=== PATIENT | male | born 1995 | race Two or more races ===

== ENCOUNTER 2018-06-23 10:53 | Emergency (ER) | payer SELFPAY ==
[~2018-06-23] VITALS: Ht 172.7 cm; Wt 79.4 kg
[2018-06-23] MEDS ORDERED: DIPHTH,PERTUSS(ACELL),TET TOX 0.5 ML DISP.SYRIN. VAX IM ONE (13:00)
[2018-06-23] MEDS ORDERED: LIDOCAINE 1% PF 30 ML VIAL. INJ ONE (13:00)
[2018-06-23] MEDS ORDERED: LIDOCAINE/EPI/TETRACAINE TOPICAL GEL 3 ML. TP ONE (13:00)
[2018-06-23] MEDS ORDERED: HYDROcodone/APAP 5/325MG 1 TAB TABLET PO ONE (13:00)
--- NOTE | 2018-06-23 13:23 | RAD ---
History: Cut elbow on metal strip. Laceration. Comparison: None. Findings: AP, lateral, and oblique views of the right elbow. No acute fracture or dislocation is identified. No joint effusion is seen. No radiopaque foreign body is identified. There is mild posterior soft tissue irregularity, compatible with laceration. Impression: 1. Posterior laceration. No radiopaque foreign body. 2. No acute osseous abnormality identified. Electronically signed by: Sher Amado MD (06/23/2018 1:19 PM) [place] [id number]
[2018-06-23 15:00] VITALS: BP 118/64
--- NOTE | 2018-06-23 15:08 | PHYS DOC ---
Past Medical History Past Medical History: No Pertinent History Past Surgical History: No Surgical History Alcohol Use: Occasionally Drug Use: Marijuana Adult General Chief Complaint Chief Complaint: LACERATION/AVULSION HPI HPI Patient is a 22 year old male who presents with right forearm laceration. Patient cut himself accidentally with a metal rebar at work. Review of Systems Review of Systems Constitutional: Denies fever or chills [] Musculoskeletal: Denies back pain or joint pain [] Integument: Reports right forearm laceration Neurologic: Denies headache, focal weakness or sensory changes [] All other systems were reviewed and found to be within normal limits, except as documented in this note. Current Medications Current Medications Current Medications Medications (Trade) Dose Ordered Sig/Valorie Start Time Stop Time Status Last Admin Dose Admin Acetaminophen/ Hydrocodone Bitart (Lortab 5/325) 2 tab 1X ONCE 06/23/18 13:00 06/23/18 13:01 DC Diphtheria/ Tetanus/Acell Pertussis (Boostrix) 0.5 ml ONCE ONCE 06/23/18 13:00 06/23/18 13:01 DC Lidocaine HCl (Xylocaine 1% Pf 30ml Vial) 30 ml 1X ONCE 06/23/18 13:00 06/23/18 13:01 DC Lidocaine/ Epinephrine (Let Topical) 6 ml 1X ONCE 06/23/18 13:00 06/23/18 13:01 DC Allergies Allergies Allergies Coded Allergies Type Severity Reaction Last Updated Verified No Known Drug Allergies 01/17/16 No Physical Exam Physical Exam Constitutional: Well developed, well nourished, no acute distress, non-toxic appearance. [] Skin: Right forearm with 2 lacerations, one of them is approximately 8 x 4 cm, the other one is approx. 5X2 cm, there is no obvious tendon involvement in either lacerations. Full range of motion to the right upper extremities. Adequate radial medial and ulnar sensation to the right forearm. +2 right radial pulse. Cap refill less than 2 seconds the right fingers. Back: No tenderness, no CVA tenderness. [] Extremities: No tenderness, no cyanosis, no clubbing, ROM intact, no edema. [] Neurologic: Alert and oriented X 3, normal motor function, normal sensory function, no focal deficits noted. [] Psychologic: Affect normal, judgement normal, mood normal. [] Current Patient Data Vital Signs Vital Signs Date Time Temp Pulse Resp B/P (MAP) Pulse Ox O2 Delivery O2 Flow Rate FiO2 06/23/18 15:00 64 18 118/64 (82) 100 Room Air 06/23/18 11:22 97.7 97.7 EKG EKG [] Radiology/Procedures Radiology/Procedures []PROCEDURE: ELBOW RIGHT 3V History: Cut elbow on metal strip. Laceration. Comparison: None. Findings: AP, lateral, and oblique views of the right elbow. No acute fracture or dislocation is identified. No joint effusion is seen. No radiopaque foreign body is identified. There is mild posterior soft tissue irregularity, compatible with laceration. Impression: 1. Posterior laceration. No radiopaque foreign body. 2. No acute osseous abnormality identified. Electronically signed by: Sher Amado MD (06/23/2018 1:19 PM) [facility] DICTATED and SIGNED BY: SHER AMADO MD DATE: 06/23/18 1318 Laceration/Wound Repair Wound Location: Right forearm Wound's Depth, Shape: V-shaped Wound Length (cm): wound A approx. 8X4 cm wound B approx. 5X2 cm Wound Explored: clean Irrigated w/ Saline (ccs): 500 Betadine Prep?: Y Anesthesia: LET and 1% of lidocaine Volume Anesthetic (ccs): approx. 8 cm for both Suture Size/Type: inner laceration of 8 x 4 cm lac was closed with 3 interrupted sutures using 3. 0 Vicryl, exterior laceration was closed with 20 interrupted sutures using 3.0 and 4. 0 Ethilon., Inner laceration of 5 x 2 cm laceration was closed with 2 interrupted sutures using 3. 0 Vicryl, exterior laceration was closed with 10 interrupted sutures with 5.0 and 3.0 ethilon Wound was covered with nonstick dressing Course & Med Decision Making Course & Med Decision Making Pertinent Labs and Imaging studies reviewed. (See chart for details) Patient has laceration to the right forearm that was closed by me as noted in procedures. Wound care instructions and return precautions provided. Tetanus updated. Follow-up with the ED in 7-10 days for suture removal. Staff Physician Addendum: I was working in the ER during the course of this patient's visit. I was available for consultation as needed, but I was not directly involved in the care of this patient. Dragon Disclaimer Dragon Disclaimer This electronic medical record was generated, in whole or in part, using a voice recognition dictation system. Departure Departure Impression: Primary Impression: Laceration of right forearm Disposition: 01 HOME, SELF-CARE Condition: STABLE Referrals: NO PCP (PCP) Follow-up with the ED in 7-10 days for suture removal Patient Instructions: Laceration Care, Adult Additional Instructions: You have a laceration to the right forearm that was closed with stitches. Keep the area clean and dry, you can shower. Monitor the area for signs of infection including but not limited to increased redness to the area, yellow drainage from the area, warmth to the area and return to the ED if they occur or see your own doctor. Apply Neosporin to the area twice a day. Come back to the ED in 7-10 days for suture removal Problem Qualifiers Primary Impression: Laceration of right forearm Encounter type: initial encounter Qualified Codes: S51.811A - Laceration without foreign body of right forearm, initial encounter LYNDON QUICK APRN Jun 23, 2018 15:08 KATHARINE LANG MD Jun 23, 2018 16:19
== END 2018-06-23 15:23 | disposition home or self-care (01) ==
LOC: ER 10:53
DX: S51.811A Laceration without foreign body of right forearm, initial encounter (principal); W26.8XXA Contact with other sharp object(s), not elsewhere classified, initial encounter; Y93.89 Activity, other specified; Y92.89 Other specified places as the place of occurrence of the external cause; Y99.0 Civilian activity done for income or pay
CPT/HCPCS: 12035; 73080; 99284

== ENCOUNTER 2018-07-03 08:24 | Emergency (ER) | payer SELFPAY ==
[~2018-07-03] VITALS: Ht 172.7 cm; Wt 79.4 kg
[2018-07-03 08:29] VITALS: BP 128/57
--- NOTE | 2018-07-03 08:36 | PHYS DOC ---
Past Medical History Past Medical History: No Pertinent History Past Surgical History: No Surgical History Alcohol Use: Occasionally Drug Use: Marijuana Adult General Chief Complaint Chief Complaint: SUTURE/STAPLE REMOVAL HPI HPI Patient is a 22 year old male who presents with suture removal. Patient had sutures placed in the right forearm 10 days earlier after he accidentally cut the arm on some metal. He denies that he has had complaints over the last week. No worsening pain or swelling. No fevers or chills. Subjectively, patient states wound has been healing fine. Review of Systems Review of Systems Constitutional: Denies fever or chills Integument: Denies rash or skin lesions Neurologic: denies numbness, tingling, weakness Endocrine: Denies polyuria All other systems were reviewed and found to be within normal limits, except as documented in this note. Allergies Allergies Allergies Coded Allergies Type Severity Reaction Last Updated Verified No Known Drug Allergies 01/17/16 No Physical Exam Physical Exam Constitutional: Well developed, well nourished, no acute distress, non-toxic appearance HENT: Normocephalic, atraumatic, bilateral external ears normal, oropharynx moist Skin: Warm, dry, no erythema, no rash. Extremities: Well-healing laceration 2 on the right proximal forearm. Sutures are in place. Wound edges are well approximated. There is no dehiscence. There is no local erythema, swelling, or discharge. Neurologic: Alert and oriented X 3 Psychologic: Affect normal EKG EKG [] Radiology/Procedures Radiology/Procedures [] Course & Med Decision Making Course & Med Decision Making Pertinent Labs and Imaging studies reviewed. (See chart for details) Patient is seen for suture removal. The wound is well-appearing. Patient is discharged home and encouraged to come back for any concerning symptoms. Dragon Disclaimer Dragon Disclaimer This electronic medical record was generated, in whole or in part, using a voice recognition dictation system. Departure Departure Impression: Primary Impression: Visit for suture removal Disposition: 01 HOME, SELF-CARE Condition: GOOD Patient Instructions: Suture Removal KAVITHA BALBUENA DO Jul 03, 2018 08:36
== END 2018-07-03 08:50 | disposition home or self-care (01) ==
LOC: ER 08:24
DX: S51.811D Laceration without foreign body of right forearm, subsequent encounter (principal); X58.XXXD Exposure to other specified factors, subsequent encounter
CPT/HCPCS: 99281